=== PATIENT | male | born 1935 | race Caucasian/White ===

== ENCOUNTER 2016-10-17 11:13 | Day surgery (SDC) | payer MEDICARE, OTHER ==
[2016-10-17] VITALS (9 sets, daily range): BP systolic 129–150; BP diastolic 60–78; PULSE 61–68; RESP 13–17; O2SAT 95–100
[~2016-10-17] VITALS: Ht 182.9 cm; Wt 87.7 kg
[~2016-10-17 11:13] MED LIST: ACET325T51 PO; ASPI-973 PO; CHOL100045 PO; DICL100G8 TOPICAL; FINA5TAB9 PO; GLUC500T12 PO; LIP40 PO; Lactated Ringer's 1,000 ML IV ONE; Levofloxacin 500 mg/100 mL D5W IV ONE; MELO-259 PO; METO25TA6 PO; OMEP20CA11 PO; OXYC1TAB24 PO; PRIM50TA PO; TAMS0.4C98 PO; TOPI-59 PO; fentaNYL-PF 50 mCg/mL 2 mL Inj IVPUSH PRN
[2016-10-17] MEDS ORDERED: Ondansetron 2 mg/mL 2 mL Inj ONE (11:14)
[2016-10-17] MEDS ORDERED: Propofol 10,000 mCg/mL 20 mL Inj ONE (11:14)
[2016-10-17] MEDS ORDERED: Lactated Ringer's 500 ML IV PRN (14:16)
[2016-10-17] MEDS ORDERED: Lactated Ringer's 1,000 ML IV SCH (14:16)
--- NOTE | 2016-10-17 14:16 | PCM.HPANE ---
Patient Data Surgeon Admitting Provider: Attending Provider:Felicia Martell MD Primary Care Physician:Mohit Osborne DO Other Provider:Eunice Galaningham Anesthesia Reason for Visit Left Ureteral Stone Ht/WT & BMI Height (Feet): 6 Height (Inches): 0 Weight (Kilograms): 87.7 Body Mass Index 26.00 Allergies Coded Allergies: propranolol (Verified Allergy, Severe, RASH, 10/16/16) Past Anesthesia History Anesthesia History: Denies:: Abnormal Airway, Anesthesia Reactions, Difficult Intubation, Fam Anesthesia Reaction, Fam Malignant Hypertherm, Malignant Hyperthermia Diabetes History Hx Diabetes?: No MRSA MRSA: No Medications Blood Thinner: Aspirin Home Meds Incl Beta Saud: Yes (METOPROLOL) Date Beta Saud Taken: Oct 17, 2016 Time Beta Saud Taken: 07:00 Reported Medications oxyCODONE-Acetaminophen 5-325 mg 1 Each Tablet1 Tab PO Q4H PRN For Pain Ref 0 10/16/16 Cholecalciferol (Vitamin D3) (Vitamin D)1,000 Unit Capsule2,000 Unit PO DAILY # 1 BOTTLE Ref 0 10/16/16 Topiramate 25 Mg [id number] Mg PO BID Ref 0 10/16/16 Meloxicam 7.5 Mg Tablet7.5 Mg PO BID 30 Days Ref 0 10/16/16 Tamsulosin (Flomax)0.4 Mg Capsule0.4 Mg PO DAILY Ref 0 10/16/16 Finasteride 5 Mg Tablet5 Mg PO DAILY 30 Days Ref 0 10/16/16 Diclofenac Gel (Voltaren Gel)100 Gm Tube1 Applic TOPICAL QID PRN For Pain #1 TUBE 02/06/16 Acetaminophen 325 Mg Negams091 Mg PO Q4H PRN For Pain Ref 0 02/06/16 Primidone 50 Mg [id number] Mg PO BID 30 Days TAKES 100MG IN AM; 150MG IN PM 02/06/16 Omeprazole 20 Mg Capsule.dr20 Mg PO DAILY Ref 0 02/06/16 Metoprolol Tartrate 25 Mg Hufovo10 Mg PO BID 30 Days Ref 0 02/06/16 Aspirin 81 Mg Yrszql29 Mg PO DAILY Ref 0 02/06/16 Glucosamine 500 Mg Vibimq410 Mg PO BID 02/06/16 Atorvastatin (Lipitor)40 Mg Ckbscu59 Mg PO DAILY Ref 0 02/06/16 Discontinued Reported Medications Hydrocodone-Acetaminophen 5-325 mg 1 Each Tablet1 Tablet PO Q4H PRN For Pain Ref 0 02/06/16 History History of ENT Problems?: Yes HEENT History: Positive for:: Cataracts (S/P CATARACT, RETINAL RPR) Hearing Problem Denies:: Abnormal Airway Difficult Intubation Dysphagia Denture Type: None Teeth Condition: Within Normal Limits Other HEENT Pertinent History: S/P T&A Hx of Heart Problems?: Yes Cardiovascular History: Positive for:: Cardiac Surgery (HEART CATH/CABG 2006) Chest Pain (ANGINA - in the past, none since revascularization) Coronary Artery Disease Hypertension (HYPERLIPIDEMIA) Irregular Heartbeat (OCCAS PAC'S/PVC'S) 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, MOD TR, TR IL) Denies:: AICD Atrial Fibrillation Heart Murmur (ECHO 09/2016 EF 60-65%) Pacemaker Hx of Respiratory Problem?: Yes Respiratory History: Positive for:: Dyspnea (GOYAL HX ASBESTOS EXPOSURE) Denies:: Asthma COPD Cough Hemoptysis Pneumonia Tuberculosis Use of C-PAP Machine (DOMINIK+ W/ CPAP SLEEP STUDY 11/2015) Hx Neurologic Problems?: Yes Neurological History: Denies:: Alzheimer's Disease CVA Dementia Headaches Multiple Sclerosis Parkinson's Disease (essential tremors) Seizures Other Neurological Pertinent: 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 PINNING FX RT ELBOW W/ NON-UNION SEEING DR. AGUILLON 10/2016) Osteoarthritis Denies:: Back Injury Systemic Lupus Hx of Psycho/Social Problems?: No Psycho Social History: Denies:: Anxiety Hx Depression Hx Surgeries?: Yes (HEART CATH,CABG,T&A,LT INGUINAL HERNIA RPR,LT TSA,RT JAVIER, TURP,EYE PROCEDURE) Hx Any Other Health Problems?: Yes Other History: Positive for:: Hospitalization (CARDIAC) Denies:: Cancer Endocrine Disease Thyroid Disease History Blood Transfusions: Denies:: Blood Transfuse Reaction Blood Transfusions Hx Diabetes: No Hx Alcohol Use: NoHx Substance Use: No Smoking Status: Never Smoker Have You Smoked inLast 12 mo: No Stop/Bang Treated for Sleep Apnea?: Yes Do You Have a CPAP Machine?: Yes S-Snoring: Do You Snore Loudly: Yes T-Tired: feel tired, fatigued: Yes O-Obsered: Observed not breath: Yes P-Blood Pressure: treated: Yes B- Body Mass Index > 35 kg/m2: No A- Age over 50: Yes N- Neck Large Circumference: No G- Gender Male: Yes DOMINIK Total Score: 6 Risk Assessment Category Category 1A: Patient has history of documented sleep apnea, and HAS NOT received any narcotic, sedative or anesthesia administration during this stay. Category 1B: Patient has history of documented sleep apnea, and HAS received any narcotic , sedative or anesthesia administration during this stay Category 2: Patient has SUSPECTED Obstructive Sleep Apnea, and HAS received any narcotic , sedative or anesthesia administration during this stay. Category 3: Patient has SUSPECTED Obstructive Sleep Apnea and HAS NOT received narcotic, sedative or anesthesia administration during this stay. Category 4: Outpatient in Procedural Areas with known sleep apnea or who screen positive for High Risk via the STOP/BANG questionnaire. Exam Exam Vital Signs Vital Signs Date Time Temp Pulse Resp B/P Pulse Ox O2 Delivery O2 Flow Rate FiO2 10/17/16 11:39 36.1 14 133/60 98 Room Air General Appearance: Alert, Oriented X3, Cooperative HEENT/AIRWAY: MP 3 Lungs: Clear to Auscultation Heart: Exam Unremarkable Meds/Labs/Diagnostics Admission Meds Current Medications Lactated Ringer's (Lr) 1,000 ml @ 120 mls/hr Q8H20M ONCE IV Last administered on 10/17/16t 11:25; Start 10/17/16 at 10:06; Stop 10/17/16 at 18:25 Plan Impression Patient chart reviewed, patient interviewed and anesthestic plan with risks, benefits, and alternatives discussed, and informed consent obtained. ASA Physical Status: ASA3 Severe Disease Anesthetic Plan: GA Bene/Risks/Altern/Consents: Yes HP Complete Prior to Induction: Yes Antonio Bhatia DO Oct 17, 2016 12:13
[2016-10-17] MEDS ORDERED: Iopamidol-300 50 mL Inj IV ONE (14:17)
[2016-10-17] MEDS ORDERED: Dexamethasone 4 mg/mL Inj IVPUSH PRN (14:20)
[2016-10-17] MEDS ORDERED: EPHEDrine Sulfate 50 mg/mL Inj IVPUSH PRN (14:20)
[2016-10-17] MEDS ORDERED: Ondansetron 2 mg/mL 2 mL Inj IVPUSH PRN (14:20)
[2016-10-17] MEDS ORDERED: MetoCLOpramide 5 mg/mL 2 mL Inj IVPUSH PRN (14:20)
[2016-10-17] MEDS ORDERED: fentaNYL-PF 50 mCg/mL 2 mL Inj IVPUSH PRN (14:20)
[2016-10-17] MEDS ORDERED: Phenylephrine 10,000 mCg/mL Inj IVPUSH PRN (14:20)
[2016-10-17] MEDS ORDERED: HYDROmorphone 1 mg/mL Inj IVPUSH PRN (14:20)
[2016-10-17] MEDS ORDERED: Phenazopyridine 97.5 mg Tablet PO PRN (14:50)
[2016-10-17] MEDS ORDERED: Ondansetron 8 mg ODT Tablet PO PRN (14:50)
[2016-10-17] MEDS ORDERED: HYDROcodone-APAP 5-325 mg Tablet PO PRN (14:50)
--- NOTE | 2016-10-18 09:58 | OP ---
[address] [address] OPERATIVE REPORT PATIENT: MARCELA FERNANDES : 1935 MR#: [id number] ADMIT: 10/17/2016 JOB ID: [id number] DATE OF SURGERY: 10/17/2016 PROCEDURE NAME: 1. Left-sided diagnostic ureteroscopy. 2. Cystoscopy. 3. Removal of bladder stone. 4. Left-sided retrograde pyelogram. 5. Left-sided double-J stent placement. SURGEON: Felicia Martell MD. ANESTHESIA: General. PREOPERATIVE DIAGNOSIS(ES): 1. Left-sided renal colic. 2. Left-sided hydronephrosis. 3. Suspected left-sided ureteral calculus, invisible due to CT artifact from the patient's bilateral total hip replacements. POSTOPERATIVE DIAGNOSIS(ES): 1. Left-sided renal colic. 2. Left-sided hydronephrosis. 3. Suspected left-sided ureteral calculus, invisible due to CT artifact from the patient's bilateral total hip replacements. INDICATIONS: The patient is a very pleasant 81-year-old gentleman with a two-week history of severe episodic left-sided abdominal pain and some hematuria. No urinary infection found. He had a CAT scan done at [facility] showing some mild left-sided hydronephrosis with hydroureter, also mild, down to his pelvis. Visualization at this point was quite difficult secondary to scattered artifact from his hips. Thus, it was impossible to detect to a distal stone in this gentleman. He was seen in clinic on August 18, 2016, still with ongoing pain at this point for two weeks, severely bothered, and set up for anesthetic assessment. PROCEDURE IN DETAIL: After appropriate informed consent was obtained, the patient was brought to the operating room. He received IV antibiotics prior to onset of the procedure. SCDs were placed. Adequate general anesthesia induced. She was carefully placed in dorsal lithotomy position. All pressure points carefully padded. Cleaned, prepped, and draped in the usual sterile fashion. Rigid scope was introduced in the patient's bladder, which was noted to be clear with no signs of infection. There was an about 4 mm calculus in the bladder in the crease behind the prostate, suspected to have been passed through the left ureter. The appearance was more characteristic of a ureteral calculus than a bladder stone in size and in coloration. This was grasped and brought out. We then identified the left ureteral orifice. No efflux was seen from it. We cannulated it with a wire. There was a little bit of cellular debris that came down out after the wire. We then advanced an open-ended ureteral catheter, performed a retrograde pyelogram. Noted no filling defects, just some mild proximal ureteral dilation. Still, there was some efflux of the contrast after the catheter was removed. We then took the rigid ureteroscope and was introduced it into the distal ureter, which did have quite a bit of edema, swelling and narrowing likely secondary to previously impacted UVJ stone. We passed this up into the part of the ureter that was nicely dilated and completely normal in appearance. No further stone was found. Rigid ureteroscope was withdrawn. Given the edematous state of the distal ureter and the minimally still impacted drainage from the left renal unit, we went ahead and decided to place a stent. We used the safety wire that had been left after initial placement to backload through the cystoscope, and advanced a 6-Icelandic x 24 cm double-J stent over the wire through the scope. Under fluoroscopic guidance for the upper end and direct visual guidance for the distal end, we placed the stent in a good position with curl in the renal pelvis and a curl in the patient's bladder. The string was left long outside the patient's body. His bladder was irrigated out completely. There was minimal hematuria. It was drained. The scope was removed. The string was left long. He tolerated the procedure very well and was returned in stable condition to the postanesthesia care unit.
--- NOTE | 2016-10-18 12:05 | DRSVH ---
PROCEDURE: X-RAY RETROGRADE UROGRAPHY INDICATIONS: LEFT RETROGRADE PYELOGRAM AND STENT PLACE TECHNIQUE: 8 intra-operative images acquired by the Urology service. COMPARISON: [facility], CT, CT ABD PELVIS W CON, 10/16/2016, 12:39. FINDINGS: 8 submitted images demonstrates opacification of the left renal collecting system which shetty s a normal appearance. No hydronephrosis or intraluminal filling defects are visualized. Visualized portions of the ureter demonstrate normal course and caliber. No extravasation of contrast media. Placement of ureteral stent. IMPRESSION: 1. Normal appearance of the left renal collecting system and visualized portions of the left ureter. 2. Ureteral stent placement. Dictated by: Edward MCKEON Interpreted: Melyssa Tellez MD on 10/18/2016 at 12:03 Transcribed by: GUSTAVO on 10/18/2016 at 12:05 Approved by: Melyssa Tellez MD, PhD on 10/18/2016 at 15:31
[2016-10-24 14:14] LABS: Stone Color Brown (.)
== END 2016-10-17 23:59 | disposition home or self-care (01) ==
LOC: SAS 11:13
PROVIDERS: ATTEND Urology
PROC: BT1F1ZZ Fluoroscopy of Left Kidney, Ureter and Bladder using Low Osmolar Contrast (ICD-10-PCS; 2016-10-17)
PROC: 0T778DZ Dilation of Left Ureter with Intraluminal Device, Via Natural or Artificial Opening Endoscopic (ICD-10-PCS; principal; 2016-10-17 13:15)
DX: N13.2 Hydronephrosis with renal and ureteral calculous obstruction (principal); N23 Unspecified renal colic; I25.10 Atherosclerotic heart disease of native coronary artery without angina pectoris; Z95.1 Presence of aortocoronary bypass graft; G47.33 Obstructive sleep apnea (adult) (pediatric); E78.5 Hyperlipidemia, unspecified; N40.1 Benign prostatic hyperplasia with lower urinary tract symptoms; R35.1 Nocturia; R35.0 Frequency of micturition; N39.43 Post-void dribbling; Z79.82 Long term (current) use of aspirin; Z96.643 Presence of artificial hip joint, bilateral; I10 Essential (primary) hypertension
CPT/HCPCS: 36415; 52332; 52351; 74420; 82360; C2617; J2405; J7120; Q9967